=== PATIENT | male | born 1980 | race Two or more races ===

== ENCOUNTER 2020-06-27 10:25 | Emergency (ER) | payer OTHER ==
[~2020-06-27] VITALS: Ht 167.6 cm; Wt 81.6 kg
[2020-06-27 10:40] VITALS: BP_SYST 142
[2020-06-27] MEDS ORDERED: IBUP800T54 PO (12:33)
[2020-06-27 12:38] VITALS: BP_SYST 142
== END 2020-06-27 12:38 | disposition home or self-care (01) ==
LOC: EDBD 10:25 → SED 10:25
DX: S22.32XA Fracture of one rib, left side, initial encounter for closed fracture (principal); W11.XXXA Fall on and from ladder, initial encounter; Y93.89 Activity, other specified; Y92.89 Other specified places as the place of occurrence of the external cause; Y99.8 Other external cause status
CPT/HCPCS: 71100; 99283; J7030

== ENCOUNTER 2020-06-28 12:51 | Emergency (ER) | payer OTHER ==
[~2020-06-28] VITALS: Ht 167.6 cm; Wt 81.6 kg
[~2020-06-28 12:51] MED LIST: IBUP800T54 PO
[2020-06-28 12:57] VITALS: BP_SYST 138
[2020-06-28 13:46] VITALS: BP_SYST 138
== END 2020-06-28 13:46 | disposition home or self-care (01) ==
LOC: SED 12:51
DX: S22.32XA Fracture of one rib, left side, initial encounter for closed fracture (principal); W11.XXXA Fall on and from ladder, initial encounter; Y93.89 Activity, other specified; Y92.89 Other specified places as the place of occurrence of the external cause; Y99.8 Other external cause status
CPT/HCPCS: 99281